=== PATIENT | female | born 1995 | race Caucasian/White ===

== ENCOUNTER → 2016-03-06 | Outpatient (CLI) | payer OTHER ==
[2016-03-06 10:08] LABS: CH 28.5; CHCM 33.2; HCT 39.8 % (34.0-46.0); HDW 2.71; HGB 13.3 gm/dL (11.4-16.0); MCH 28.8 pg (25.0-35.0); MCHC 33.4 g/dL (31.0-37.0); MCV 86.2 fL (80.0-100.0); Mean Platelet Volume 6.3; RBC 4.62 m/uL (3.80-5.40); RDW 12.6 % (11.5-15.5); WBC 7.2 k/uL (4.0-11.0)
[2016-03-06 10:16] LABS: Glucose 120 mg/dL (74-99); Non-African American GFR(MDRD) >60 (>60 ml/min/1.73 sqM)
[2016-03-06 10:38] LABS: Hepatitis B Surface Ag Index 0.06
[2016-03-06 17:16] LABS: Treponemal Ab Non-Reactive (Non-Reactive)
[2016-03-07 06:24] LABS: HIV-1/HIV-2 Ab Screen NONREAC (NON REAC)
== END | disposition home or self-care (01) ==
LOC: LABWHC1 09:13
PROVIDERS: ATTEND Obstetrics & Gynecology
DX: Z34.81 Encounter for supervision of other normal pregnancy, first trimester (principal); Z3A.00 Weeks of gestation of pregnancy not specified
CPT/HCPCS: 36415; 82565; 82947; 85027; 86762; 86777; 86778; 86780; 86850; 86900; 86901; 87340; 87389

== ENCOUNTER → 2016-03-24 | Outpatient (CLI) | payer OTHER ==
--- NOTE | 2016-03-24 10:55 | US ---
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 12 oz. WEIGHT PERCENTAGE BASED ON ESTABLISHED DATE: 92 % HC/AC: 1.2 FL/AC: 22.9 HEART RATE: 136 bpm RHYTHM: Normal ANATOMY SEEN (within normal limits): * Lateral Vent (< 1 cm) 0.6 cm * Cisterna Magna (< 1.1 cm) 0.2 cm * Nuchal Fold (< 0.6 cm) 0.3 cm * Cerebellum (varies with age) 2.0 cm Choroid Plexus (bilateral) Midline Falx Cavus Septi Pellucidi Four Chamber Heart Outflow tracts: LVOT/RVOT Stomach Situs Diaphragm Kidneys (bilateral) Bladder Cord Insert Three Vessel Cord Arms (bilateral) Legs (bilateral) ANATOMY NOT SEEN: Nose / Lips Longitudinal Spine Transverse Spine IMPRESSION: Viable 20w0d fetus that appears wnl, unable to obtain spine images due to position. Brandi ent is scheduled for callback to assess spine.
== END | disposition home or self-care (01) ==
LOC: RADUSWWP 09:35
PROVIDERS: ATTEND Obstetrics & Gynecology
DX: O36.62X0 Maternal care for excessive fetal growth, second trimester, not applicable or unspecified (principal); Z3A.19 19 weeks gestation of pregnancy
CPT/HCPCS: 76811

== ENCOUNTER 2016-08-11 23:43 | Outpatient (CLI) | payer OTHER ==
[2016-08-12 01:32] VITALS: BP 119/56; PULSE 101; RESP 16; TEMP 96.2
--- NOTE | 2016-08-12 07:36 | P.MSEPDOC ---
Presenting Problems - Arrival Data Date of Arrival on Unit: 08/11/16 Time of Arrival on Unit: 23:43 Mode of Transport: Wheelchair - Complaint OB-Reason for Admission/Chief Complaint: Possible Onset of Labor Medical History - Information : 3 Para: 2 Term: 2 : 0 Abortions: Spontaneous or Elective: 0 Number of Living Children: 2 - Gestational Age Expected Date of Delivery: 08/17/16 Gestational Age by RACHEL (wks/days): 39 Weeks and 2 Days - History Complications: Prior Review of Systems - Review of Systems Constitutional: No problems Breast: No problems ENT: No problems Cardiovascular: No problems Respiratory: No problems Gastrointestinal: No problems Genitourinary: No problems Musculoskeletal: No problems Neurological: No problems Skin: No problems Vital Signs - Temperature Temperature: 96.2 F Temperature Source: Temporal Artery Scan - Pulse Right Supine Brachial Pulse Rate: 101 Pulse Assessment Method: Automatic Cuff - Respirations Respiratory Rate: 16 Oxygen Delivery Method: Room Air - Blood Pressure Right Arm Supine Blood Pressure: 119/56 Blood Pressure Mean: 77 Blood Pressure Source: Automatic Cuff Medical Screen Scoring (Pre) - Cervical Exam Dilation: 1-3 cm = 1 Membranes: Intact - Uterine Contractions Frequency: > or = 36 weeks =2, Scheduled / = 6 Duration: N/A Intensity: N/A - Maternal Vital Signs Maternal Temperature: N/A Maternal Blood Pressure: N/A Signs of Preeclampsia: N/A Maternal Respirations: N/A - Maternal Trauma Maternal Trauma: N/A - Assessment Baseline FHR: 125 Heart Rate - NICHD Category: Category I (Normal) = 0 NST: Reactive Position: N/A Station: N/A - Total Score Total Score (Pre): 9 - Level of Risk Level of Risk: Medium (6-9) Physician Notification (Pre) - Physician Notified Physician Notified Date: 08/12/16 Physician Notified Time: 01:05 Physician/Practitioner Notifed:: Sandra Spoke With: Sandra New Order Received: Yes (Discharge to home) - Notification Comment Comment: Has scheduled follow-up appointment already, section on Disposition - Disposition OB Disposition: Discharge to home, Written follow up instructions reviewed Discharge Date: 08/12/16 Discharge Time: 01:15 I agree with the RN Medical Screening Exam: Yes Risk & Benefit of care provided described in d/c instruction: Yes Diagnosis: FALSE LABOR AT OR AFTER 37 COMPLETED WEEKS OF GESTATION
== END 2016-08-12 01:15 | disposition home or self-care (01) ==
LOC: FBPOP 23:43
PROVIDERS: ATTEND Obstetrics & Gynecology
DX: O47.1 False labor at or after 37 completed weeks of gestation (principal); Z3A.39 39 weeks gestation of pregnancy
CPT/HCPCS: 59025; G0463; 99213

== ENCOUNTER 2016-08-13 22:15 | Inpatient (IN) | payer OTHER ==
[2016-08-14 00:37] LABS: Glucose,Whole Blood 95 mg/dL (75-99)
[2016-08-14] MEDS ORDERED: LACTATED RINGERS 1,000 ML IV SCH (01:00)
[2016-08-14 01:28] LABS: Basophils % (A) 0 %; CH 25.3; CHCM 31.8; Eosinophils # (A) 0.1 k/uL (0-0.7); Eosinophils % (A) 1 %; HCT 36.4 % (34.0-46.0); HDW 3.07; HGB 11.7 gm/dL (11.4-16.0); Hypochromasia Slight; Luc # (Auto) 0.28; Luc % (Auto) 2; Lymphocytes # (A) 2.3 k/uL (1.0-4.8); Lymphocytes % (A) 18 %; MCH 25.7 pg (25.0-35.0); MCHC 32.3 g/dL (31.0-37.0); MCV 79.7 fL (80.0-100.0); Mean Platelet Volume 6.6; Monocytes # (A) 0.7 k/uL (0-1.0); Monocytes % (A) 5 %; Neutrophils # (A) 9.6 k/uL (1.3-7.7); Neutrophils % (A) 74 %; RBC 4.56 m/uL (3.80-5.40); RDW 13.8 % (11.5-15.5); WBC (Perox) 13.92
[2016-08-14 02:02] VITALS: BMI 49.1
[2016-08-14] MEDS ORDERED: BUTORPHANOL 1 MG/ML 1 ML VIAL IV PRN (02:12)
[2016-08-14] MEDS ORDERED: ceFAZolin 2 GM in SODIUM CHLORIDE 0.9% 100 ML IVPB STA (03:18)
[2016-08-14] MEDS ORDERED: MORPHINE SULFATE (PF) 0.3 MG/0.3 ML SYR ONE (03:54)
[2016-08-14] MEDS ORDERED: DEXAMETHASONE SOD PHOS (MDV) 100 MG/10 ML VIAL ONE (03:54)
[2016-08-14] MEDS ORDERED: PHENYLEPHRINE-0.9% NACL SYG 1 MG/10 ML SYRINGE ONE (03:54)
[2016-08-14] MEDS ORDERED: ONDANSETRON 4 MG/2 ML VIAL ONE (03:54)
[2016-08-14] MEDS ORDERED: OXYTOCIN 10 UNIT/ML 1 ML VIAL ONE (03:54)
[2016-08-14] MEDS ORDERED: KETOROLAC 30 MG/ML 1 ML VIAL ONE (03:54)
[2016-08-14] MEDS ORDERED: MORPHINE SULFATE 4 MG/ML SYRINGE IVP PRN (04:25)
[2016-08-14] MEDS ORDERED: NALOXONE 0.4 MG/ML 1 ML VIAL IV PRN ×2 (04:25→04:44)
[2016-08-14] MEDS ORDERED: diphenhydrAMINE 50 MG/ML 1 ML VIAL IVP PRN ×2 (04:25→04:44)
[2016-08-14] MEDS ORDERED: ONDANSETRON 4 MG/2 ML VIAL IVP PRN ×2 (04:25→04:44)
[2016-08-14] MEDS ORDERED: ACETAMINOPHEN TAB 325 MG TAB PO PRN (04:44)
[2016-08-14] MEDS ORDERED: KETOROLAC 30 MG/ML 1 ML VIAL IVP PRN (04:44)
[2016-08-14] MEDS ORDERED: METOCLOPRAMIDE 5 MG/ML 2 ML VIAL IVP PRN (04:44)
[2016-08-14] MEDS ORDERED: diphenhydrAMINE 25 MG CAP PO PRN (04:44)
[2016-08-14] MEDS ORDERED: SIMETHICONE 80 MG CHEWABLE PO PRN (04:44)
[2016-08-14] MEDS ORDERED: ZOLPIDEM 5 MG TAB PO PRN (04:44)
[2016-08-14] MEDS ORDERED: Acetaminophen-Codeine 300-30mg TAB PO PRN (04:44)
[2016-08-14] MEDS ORDERED: OXYTOCIN 20 UNITS/1000 ML NS 1,000 ML IV SCH (04:45)
--- NOTE | 2016-08-14 04:55 | P.HPOB ---
History of Present Illness H&P Date: 08/14/16 Chief Complaint: Contractions and previous . This patient is a 20-year-old 3 para 2 female estimated date of confinement 08/16/2016 who presented to labor and delivery with complaints of contractions. Patient scheduled today for a repeat section per Dr. Gambino. Patient began having contractions earlier this evening is found to be 2 cm dilated. care is complicated by noncompliance with testing. It appears Dr. Gambino's has had multiple discussions with her about doing glucose testing, etc. and patient has decided not to do this. Patient's had 2 previous sections and is scheduled for repeat section and thought to be in active labor at this time. Review of Systems Constitutional: Denies chills, Denies fever Eyes: denies blurred vision, denies pain Ears, nose, mouth and throat: Denies headache, Denies sore throat Cardiovascular: Denies chest pain, Denies shortness of breath Respiratory: Denies cough Gastrointestinal: Reports heartburn Genitourinary: Reports Menstruation: Reports amenorrhea Musculoskeletal: Denies myalgias Integumentary: Denies pruritus, Denies rash Neurological: Denies numbness, Denies weakness Psychiatric: Denies anxiety, Denies depression Past Medical History Past Medical History: No Reported History, Thyroid Disorder Additional Past Medical History / Comment(s): Obstetric history: Patient has had 2 previous sections. History of Any Multi-Drug Resistant Organisms: None Reported Past Surgical History: Section Additional Past Surgical History / Comment(s): Tooth surgery Past Anesthesia/Blood Transfusion Reactions: No Reported Reaction Past Psychological History: No Psychological Hx Reported Smoking Status: Current every day smoker Past Alcohol Use History: None Reported Past Drug Use History: None Reported - Past Family History Mother Family Medical History: No Reported History Medications and Allergies Home Medications Medication Instructions Recorded Confirmed Type Pnv,Calcium 72/Iron/Folic Acid 1 tab PO DAILY 08/11/16 08/13/16 History [ Plus Tablet] Allergies Allergy/AdvReac Type Severity Reaction Status Date / Time amoxicillin trihydrate Allergy Rash/Hives Verified 08/13/16 22:25 [From Trimox] Penicillins Allergy Rash/Hives Verified 08/13/16 22:25 Exam - Vital Signs Vital signs: Vital Signs Temp Pulse Resp BP 08/14/16 01:21 98.0 F 95 18 140/65 08/13/16 22:26 98.0 F 95 16 140/65 Intake and Output 08/13/16 08/13/16 08/14/16 14:59 22:59 06:59 Other: Weight 117.934 kg 117.934 kg Patient Weight 08/14/16 06:59 Weight 117.934 kg - OBG Physical Exam Abdomen: bowel sounds normal, no diffuse tenderness, no bruit present, no guarding noted, no hepatomegaly, no splenomegaly, no mass Vulva: both: normal Vagina: normal moisture, no discharge Cervix: no lesion (Cervix is 2 cm dilated and 50% effaced.), no discharge Uterus: enlarged Results Blood type is B+, patient has had a positive group B strep culture. Patient did not do any glucose testing. Result Diagrams: 08/14/16 01:00 Abnormal Lab Results - Last 24 Hours (Table) 08/14/16 Range/Units 01:00 WBC 13.0 H (4.0-11.0) k/uL MCV 79.7 L (80.0-100.0) fL Neutrophils # 9.6 H (1.3-7.7) k/uL Assessment and Plan (1) Previous delivery affecting Narrative/Plan: This is a 20-year-old 3 para 2 female 39-5/7 weeks' gestation with previous section and active labor. Plan is to proceed with repeat section at this time. Patient does understand the surgery and risks including risks of infection, bleeding, possible injury bowel, bladder, vessels , and other organs. All the patient's questions are answered and a written consent is obtained. Status: Acute (2) Active labor at term Status: Acute (3) Group B streptococcal carriage complicating Status: Acute (4) Non-compliant patient Status: Acute
--- NOTE | 2016-08-14 05:01 | P.OP ---
Date of Procedure: 08/14/16 Preoperative Diagnosis: #1: 39-5/7 weeks . #2: Active labor. #3: Previous section 2. #4: Positive group B strep culture. #5: Noncompliance with care. Postoperative Diagnosis: Same, suspect chorioamnionitis, meconium-stained fluid. Procedure(s) Performed: Repeat low transverse section Implants: Anesthesia: spinal Surgeon: James Flores Gateman #1: Cecille Orta Estimated Blood Loss (ml): 800 Pathology: other (Placenta) Condition: stable Disposition: floor Indications for Procedure: Please see dictated H&P for intimate details of this patient's admission. Brief summary this is a 20-year-old 3 para 2 female 39-5/7 weeks gestation who is admitted to labor and delivery in active labor. Patient is a previous section scheduled for repeat today. Patient's has been complicated by noncompliance. Patient understands surgery and its risks including risks of infection, bleeding, possible injury bowel, bladder, vessels , and other organs. Patient her stands risk of DVT and pulmonary embolism. All the patient's questions are answered and a written consent is obtained. Operative Findings: This is a viable male infant Apgars are 7 and 8 delivery time was 0414 hours. Fluid was meconium-stained and had a foul odor to it. The placenta was meconium -stained as well. Description of Procedure: This patient has a Woodruff catheter placed to straight drain. She is subsequently taken to the operating room where she sat up and spinal anesthetic is administered without incident. With an adequate level of anesthesia she has abdominal prep and drape. Scalpels and taken in the previous Pfannenstiel incision is incised. A second scalpel is taken down to the fascia. Fascia scored with a knife. Fascial incision extended bilaterally using the Archibald scissors. Fascia is then dissected off the rectus muscles sharply. Peritoneum was then identified and entered sharply. There are multiple omental adhesions to the lower part of the incision and through the lower uterine segment. The peritoneum was extended and the omental adhesions are dissected. Bladder blade is placed at this time. Bladder peritoneum was taken sharply off the lower uterine segment. Scalpels and taken low transverse uterine incision is then made. Using a hemostat I into the uterine cavity bluntly. There is loss of meconium-stained fluid at this time. Incision is extended bluntly. 's head is then guided through the incision with fundal pressure. There is a nuchal cord and a body cord noted. Mouth and nares are bulb suctioned. There delivery the rest this 's body. The viable male . Apgars are 7 and 8 delivery time 0414 hrs. After delivery of the the umbilical cords doubly clamped and cut is handed off to the nurses in attendance. At this time of fluid is noted to have an odor to it and the placenta is noted to be stained green. The placenta is manually extracted intact. Uterus is then externalized uterine incision then closed in 0 Vicryl running locked fashion 2 layers. Good hemostasis is noted. The bladder peritoneum was unable to be reapproximated due to the omental adhesions. The rectus muscles reapproximated in 0 Vicryl interrupted fashion. Fascia is then closed using 0 PDS. Fascial incision is intact and hemostatic. Subcutaneous tissues and closed using a 3-0 Vicryl. Skin is and closed using mary. All counts are correct 3. There are no complications. is taken to special care for observation secondary to the fluid. Mother is taken to her birthing suite in satisfactory condition.
--- NOTE | 2016-08-14 05:19 | P.MSEPDOC ---
Presenting Problems - Arrival Data Date of Arrival on Unit: 08/13/16 Time of Arrival on Unit: 22:15 Mode of Transport: Bed - Complaint OB-Reason for Admission/Chief Complaint: Possible Onset of Labor Comment: Contractions all day intensified around 1900 this evening about 4 minutes apart Medical History - Information : 3 Para: 2 Term: 2 : 0 Abortions: Spontaneous or Elective: 0 Number of Living Children: 2 - Gestational Age Expected Date of Delivery: 08/16/16 Gestational Age by RACHEL (wks/days): 39 Weeks and 5 Days - History Complications: GBS+ Review of Systems - Review of Systems Constitutional: No problems Breast: No problems ENT: No problems Cardiovascular: No problems Respiratory: No problems Gastrointestinal: No problems Genitourinary: No problems Musculoskeletal: No problems Neurological: No problems Skin: No problems Vital Signs - Temperature Temperature: 96.3 F Temperature Source: Temporal Artery Scan - Pulse Pulse Oximetery Pulse Rate: 109 Pulse Assessment Method: Pulse Oximetry - Respirations Respiratory Rate: 16 Oxygen Delivery Method: Room Air - Blood Pressure Sitting Blood Pressure: 133/56 Blood Pressure Mean: 81 Blood Pressure Source: Automatic Cuff Medical Screen Scoring (Pre) - Cervical Exam Dilation: 1-3 cm = 1 Effacement: More than 50% = 2 Membranes: Intact - Uterine Contractions Frequency: > or = 36 weeks =2 Duration: > 40 seconds = 2 Intensity: N/A - Maternal Vital Signs Maternal Temperature: N/A Maternal Blood Pressure: N/A Signs of Preeclampsia: N/A Maternal Respirations: N/A - Maternal Trauma Maternal Trauma: N/A - Assessment Baseline FHR: 135 Heart Rate - NICHD Category: Category I (Normal) = 0 NST: Reactive Position: N/A - Total Score Total Score (Pre): 7 - Level of Risk Level of Risk: Medium (6-9) Medical Screen Scoring (Post) - Cervical Exam Dilation: 1-3 cm = 1 Effacement: More than 50% = 2 Membranes: Intact - Uterine Contractions Frequency: > or = 36 weeks =2 Duration: > 40 seconds = 2 Intensity: N/A - Maternal Vital Signs Maternal Temperature: N/A Maternal Blood Pressure: N/A Signs of Preeclampsia: N/A Maternal Respirations: N/A - Maternal Trauma Maternal Trauma: N/A - Assessment Heart Rate: 125 Heart Rate - NICHD Category: Category I (Normal) = 0 NST: Reactive Position: N/A Station: N/A - Total Score Total Score (Post): 7 - Post Treatment Level of Risk Post Treatment Level of Risk: High (10+) Physician Notification (Post) - Physician Notified Physician Notified Date: 08/14/16 Physician Notified Time: 00:16 Physician/Practitioner Notified:: Dr. Flores - Notification Comment Comment: Dr. Flores order patient to be admitted for observation at this time as she has not made cervical change, start iv and continuously monitor patient at this time. Patient is scheduled for section at noon. Disposition - Disposition OB Disposition: Admit, LDRP Suite Transferred to:: Suite 5 I agree with the RN Medical Screening Exam: Yes Risk & Benefit of care provided described in d/c instruction: Yes Diagnosis: 39 WEEKS GESTATION OF
[2016-08-14] MEDS: LACTATED RINGERS 1,000 ML IV SCH ×3 (07:00→21:28)
[2016-08-14] MEDS: SENNOSIDES-DOCUSATE SODIUM 1 EACH TAB PO SCH ×2 (09:46→20:15)
[2016-08-14] MEDS ORDERED: LACTATED RINGERS 1,000 ML IV ONE (11:00)
[2016-08-14] MEDS ORDERED: CITRIC ACID-SODIUM CITRATE 15 ML CUP PO ONE (11:00)
[2016-08-14] MEDS: ceFAZolin 2 GM in SODIUM CHLORIDE 0.9% 100 ML IVPB SCH ×2 (12:09→20:16)
[2016-08-15] MEDS: LACTATED RINGERS 1,000 ML IV SCH (04:18)
[2016-08-15 07:04] LABS: Basophils % (A) 0 %; CH 25.6; CHCM 31.7; Eosinophils % (A) 0 %; HCT 32.9 % (34.0-46.0); HGB 10.3 gm/dL (11.4-16.0); Hypochromasia Slight; Luc # (Auto) 0.15; Luc % (Auto) 1; Lymphocytes # (A) 1.9 k/uL (1.0-4.8); Lymphocytes % (A) 16 %; MCH 25.3 pg (25.0-35.0); MCHC 31.2 g/dL (31.0-37.0); Mean Platelet Volume 7.4; Monocytes # (A) 0.8 k/uL (0-1.0); Monocytes % (A) 7 %; Neutrophils # (A) 9.1 k/uL (1.3-7.7); Neutrophils % (A) 76 %; RBC 4.07 m/uL (3.80-5.40); RDW 13.8 % (11.5-15.5); WBC 12.1 k/uL (4.0-11.0); WBC (Perox) 13.39
--- NOTE | 2016-08-15 08:36 | P.PN ---
Progress Note - Text Date:08/15 Time:712 Patient is status post . Patient seen this morning with VAS score of 2.no c/o of pruritus, no c/o nausea/vomiting, comfortable and doing well.
[2016-08-15] MEDS: SENNOSIDES-DOCUSATE SODIUM 1 EACH TAB PO SCH ×2 (10:00→19:53)
[2016-08-15] MEDS: Acetaminophen-Codeine 300-30mg TAB PO PRN ×2 (10:00→15:34)
--- NOTE | 2016-08-15 12:24 | P.PNOBGPC ---
Subjective - Subjective Principal diagnosis: Postop day 1 Interval history: Overall patient doing very well postop day 1. She is able to ambulate, void, and she is tolerating her diet. She voices no complaints. Pain was well- controlled. Abdomen soft vital signs are stable incisions intact. Heart regular, lungs clear, extremities without pain. Assessment postop day 1. Plan continue care. Patient reports: Reports appetite normal, Reports voiding normally, Reports pain well controlled, Reports ambulating normally [place]: doing well, in NICU Objective - Vital Signs Latest vital signs: Vital Signs Temp Pulse Resp BP Pulse Ox 08/15/16 07:47 97.8 F 94 16 128/80 08/15/16 04:00 98.6 F 95 18 118/68 98 08/15/16 00:00 98.4 F 90 18 126/66 100 08/14/16 20:00 97.7 F 82 18 122/57 100 08/14/16 15:46 97.9 F 106 H 16 122/70 Intake and Output 08/14/16 08/15/16 08/15/16 22:59 06:59 14:59 Intake Total 1300 Output Total 1200 Balance 100 Intake: IV 1300 Lactated Ringers 1,000 ml 1300 @ 125 mls/hr IV .Q8H SAUL Rx#:[id number] Output: Urine 1200 Other: # Voids 1 - Labs Labs: Abnormal Lab Results - Last 24 Hours (Table) 08/15/16 Range/Units 06:50 WBC 12.1 H (4.0-11.0) k/uL Hgb 10.3 L (11.4-16.0) gm/dL Hct 32.9 L (34.0-46.0) % Neutrophils # 9.1 H (1.3-7.7) k/uL
[2016-08-16] MEDS: LACTATED RINGERS 1,000 ML IV SCH (04:24)
--- NOTE | 2016-08-16 08:12 | P.PNOBGPC ---
Subjective - Subjective Principal diagnosis: Postoperative Interval history: Overall Yudith is doing very well. She is ambulating, voiding and she is tolerating her diet. She voices no complaints this morning. Vital signs are stable and afebrile. Heart regular, lungs clear, extremities without pain. Abdomen is soft uterus is firm and her lochia is reported be light. Incisions clean dry and intact. Assessment postop day 2. Plan continue current care. Baby is currently in special care nursery and she will therefore stay likely until babies discharge or until postop day 4. Patient reports: Reports appetite normal, Reports voiding normally, Reports pain well controlled, Reports ambulating normally : in NICU Objective - Vital Signs Latest vital signs: Vital Signs Temp Pulse Resp BP Pulse Ox 08/16/16 00:00 98.5 F 114 H 16 115/66 99 08/15/16 15:41 97.7 F 108 H 16 137/69
[2016-08-16] MEDS: IBUPROFEN 600 MG TAB PO PRN ×2 (14:09→23:58)
[2016-08-16] MEDS: SENNOSIDES-DOCUSATE SODIUM 1 EACH TAB PO SCH ×2 (18:59→19:39)
--- NOTE | 2016-08-17 11:26 | P.PNOBGPC ---
Subjective - Subjective Principal diagnosis: Postoperative 3 Interval history: Yudith is doing very well postop day 3. She is involuting, voiding, and she is tolerating her diet. She is passing flatus. Vital signs are stable and afebrile. Heart regular, lungs clear, extremities without pain. Abdomen is soft uterus is firm and her incision is clean dry and intact. Assessment postop day 3. Plan discharged home tomorrow as baby is still in special care nursery but should be discharged home tomorrow. Follow-up with me in 1 week. Perceptions for pain medication provided. Patient reports: Reports appetite normal, Reports voiding normally, Reports pain well controlled, Reports ambulating normally [place]: doing well Objective - Vital Signs Latest vital signs: Vital Signs Temp Pulse Resp BP Pulse Ox 08/17/16 08:00 98.1 F 84 20 116/67 99 08/17/16 00:00 98.2 F 86 18 115/85 98 08/16/16 16:00 98.4 F 84 20 112/64 99
[2016-08-17] MEDS: IBUPROFEN 600 MG TAB PO PRN (13:30)
[2016-08-17] MEDS: SENNOSIDES-DOCUSATE SODIUM 1 EACH TAB PO SCH (13:30)
[2016-08-18] MEDS: SENNOSIDES-DOCUSATE SODIUM 1 EACH TAB PO SCH (00:51)
--- NOTE | 2016-08-18 06:50 | P.DS ---
Providers Date of admission: 08/14/16 00:18 Expected date of discharge: 08/18/16 Attending physician: Miquel Gambino Primary care physician: Stated None Hospital Course: Yudith is doing very well postop day 4. She is involuting, voiding, and she is tolerating her diet voices no complaints. Her incision is clean dry and intact on her abdomen. Other physical exam reveals her uterus to be firm. Her extremities are without pain. Her heart is otherwise regular and lungs are clear. Prescription for pain medications provided provided and she'll follow up with me in 1 week. All questions are answered for her pressure discharge and discharge instructions were thoroughly reviewed. Assessment postop day 4. Plan remove mary and discharged home today. Patient Condition at Discharge: Good Plan - Discharge Summary New Discharge Prescriptions: New Acetaminophen-Codeine 300-30mg [Tylenol #3] 1 tab PO Q4H PRN #30 tablet PRN Reason: Pain Ibuprofen [Motrin] 600 mg PO Q6HR PRN #30 tab PRN Reason: Pain No Action Pnv,Calcium 72/Iron/Folic Acid [ Plus Tablet] 1 tab PO DAILY Discharge Medication List Pnv,Calcium 72/Iron/Folic Acid [ Plus Tablet] 1 tab PO DAILY 08/11/16 [ History] Acetaminophen-Codeine 300-30mg [Tylenol #3] 1 tab PO Q4H PRN #30 tablet [Rx] Ibuprofen [Motrin] 600 mg PO Q6HR PRN #30 tab 08/17/16 [Rx] Follow up Appointment(s)/Referral(s): Miquel Gambino DO [Doctor of Osteopathic Medicine] - 1 Week Activity/Diet/Wound Care/Special Instructions: no heavy lifting, limit stairs and driving and pelvic rest. If any high temperatures, heavy bleeding, or severe pain call my office Discharge Disposition: HOME SELF-CARE
[2016-08-18 09:31] VITALS: RESP 17
[2016-08-18 16:37] VITALS: BP 128/75; PULSE 78; TEMP 98.1
== END 2016-08-18 16:30 | disposition home or self-care (01) | DRG 766 ==
LOC: FBPOP 22:15 → 4FBP 08-14 00:18
PROVIDERS: ADMIT Obstetrics & Gynecology; ATTEND Obstetrics & Gynecology
PROC: 10D00Z1 Extraction of Products of Conception, Low, Open Approach (ICD-10-PCS; principal; 2016-08-14 04:08)
DX: O34.211 Maternal care for low transverse scar from previous cesarean delivery (principal); F17.200 Nicotine dependence, unspecified, uncomplicated; Z37.0 Single live birth; O77.0 Labor and delivery complicated by meconium in amniotic fluid; O99.334 Smoking (tobacco) complicating childbirth; Z3A.39 39 weeks gestation of pregnancy; Z91.19 Patient's noncompliance with other medical treatment and regimen; Z88.1 Allergy status to other antibiotic agents; Z88.0 Allergy status to penicillin; O69.81X0 Labor and delivery complicated by cord around neck, without compression, not applicable or unspecified; O99.824 Streptococcus B carrier state complicating childbirth
CPT/HCPCS: 59025; 85025; 86850; 86900; 86901; 88307; 99213

== ENCOUNTER 2024-06-08 06:23 | Emergency (ER) | payer OTHER ==
--- NOTE | 2024-06-08 06:56 | ED ---
Female Urogenital HPI - General Chief complaint: Urogenital Stated complaint: Urogenital Time Seen by Provider: 06/08/24 06:33 Source: patient, RN notes reviewed Mode of arrival: ambulatory Limitations: no limitations - History of Present Illness Initial comments: 28-year-old female presents emergency department with chief complaint of urinary frequency and urgency. Patient denies any fevers or chills denies any back pain no flank pain patient is concerned she has urinary tract infection. Patient has no other complaints denies any chance . Denies vaginal symptoms - Related Data Home Medications Medication Instructions Recorded Confirmed Pnv,Calcium 72/Iron/Folic Acid 1 tab PO DAILY 08/11/16 08/13/16 [ Plus Tablet] Previous Rx's Medication Instructions Recorded Acetaminophen-Codeine 300-30mg 1 tab PO Q4H PRN #30 tablet 08/17/16 [Tylenol #3] Ibuprofen [Motrin] 600 mg PO Q6HR PRN #30 tab 08/17/16 Cephalexin [Keflex] 500 mg PO Q8HR #21 cap 06/08/24 Phenazopyridine [Pyridium] 200 mg PO TID #6 tablet 06/08/24 Allergies Allergy/AdvReac Type Severity Reaction Status Date / Time amoxicillin trihydrate Allergy Rash/Hives Verified 06/08/24 06:28 [From Trimox] Penicillins Allergy Rash/Hives Verified 06/08/24 06:28 Review of Systems ROS Statement: Those systems with pertinent positive or pertinent negative responses have been documented in the HPI. ROS Other: All systems not noted in ROS Statement are negative. Past Medical History Past Medical History: No Reported History, Thyroid Disorder Additional Past Medical History / Comment(s): Obstetric history: Patient has had 2 previous sections. History of Any Multi-Drug Resistant Organisms: None Reported Past Surgical History: Section Additional Past Surgical History / Comment(s): Tooth surgery Past Anesthesia/Blood Transfusion Reactions: No Reported Reaction Past Psychological History: No Psychological Hx Reported Smoking Status: Current every day smoker Past Alcohol Use History: None Reported Past Drug Use History: None Reported - Past Family History Mother Family Medical History: No Reported History General Exam Limitations: no limitations General appearance: alert, in no apparent distress Head exam: Present: atraumatic, normocephalic, normal inspection Eye exam: Present: normal appearance, PERRL, EOMI. Absent: scleral icterus, conjunctival injection, periorbital swelling Neck exam: Present: normal inspection. Absent: tenderness, meningismus, lymphadenopathy Respiratory exam: Present: normal lung sounds bilaterally. Absent: respiratory distress, wheezes, rales, rhonchi, stridor Cardiovascular Exam: Present: regular rate, normal rhythm, normal heart sounds. Absent: systolic murmur, diastolic murmur, rubs, gallop, clicks GI/Abdominal exam: Present: soft, normal bowel sounds. Absent: distended, tenderness, guarding, rebound, rigid Back exam: Absent: CVA tenderness (R), CVA tenderness (L) Course Vital Signs 06/08/24 06:24 Temperature 98 F Pulse Rate 107 H Respiratory 18 Rate Blood Pressure 116/65 O2 Sat by Pulse 100 Oximetry Medical Decision Making - Medical Decision Making Was pt. sent in by a medical professional or institution (, PA, TUTORIAL LABORATORY SUPERVISOR, urgent care, hospital, or fdc...) When possible be specific @ -No Did you speak to anyone other than the patient for history (EMS, parent, family, police, friend...)? What history was obtained from this source @ -No Did you review nursing and triage notes (agree or disagree)? Why? @ -I reviewed and agree with nursing and triage notes Were old charts reviewed (outside hosp., previous admission, EMS record, old EKG, old radiological studies, urgent care reports/EKG's, fdc records)? Report findings @ -No old charts were reviewed Differential Diagnosis (chest pain, altered mental status, abdominal pain women, abdominal pain men, vaginal bleeding, weakness, fever, dyspnea, syncope, headache, dizziness, GI bleed, back pain, seizure, CVA, palpatations, mental health, musculoskeletal)? @ -UTI, urinary frequency, dysuria, hematuria EKG interpreted by me (3pts min.). @ -None X-rays interpreted by me (1pt min.). @ -None done CT interpreted by me (1pt min.). @ -None done U/S interpreted by me (1pt. min.). @ -None done What testing was considered but not performed or refused? (CT, X-rays, U/S, labs)? Why? @ -None What meds were considered but not given or refused? Why? @ -None Did you discuss the management of the patient with other professionals (professionals i.e. , PA, TUTORIAL LABORATORY SUPERVISOR, lab, RT, psych nurse, social scientist, hydraulic barker operator, teacher, freedom of information officer, telephonic nurse case manager)? Give summary @ -No Was smoking cessation discussed for >3mins.? @ -No Was critical care preformed (if so, how long)? @ -No Were there social determinants of health that impacted care today? How? (Homelessness, low income, unemployed, alcoholism, drug addiction, transportation, low edu. Level, literacy, decrease access to med. care, [facility], rehab)? @ -No Was there de-escalation of care discussed even if they declined (Discuss DNR or withdrawal of care, Hospice)? DNR status @ -No What co-morbidities impacted this encounter? (DM, HTN, Smoking, COPD, CAD, Cancer, CVA, ARF, Chemo, Hep., AIDS, mental health diagnosis, sleep apnea, morbid obesity)? @ -None Was patient admitted / discharged? Hospital course, mention meds given and route, prescriptions, significant lab abnormalities, going to OR and other pertinent info. @ -Discharge patient has evidence of urinary tract infection. Patient started on oral antibiotics, Pyridium. Return parameters deysi. Undiagnosed new problem with uncertain prognosis? @ -No Drug Therapy requiring intensive monitoring for toxicity (Heparin, Nitro, Insulin, Cardizem)? @ -No Were any procedures done? @ -No Diagnosis/symptom? @ -UTI Acute, or Chronic, or Acute on Chronic? @ -Acute Uncomplicated (without systemic symptoms) or Complicated (systemic symptoms)? @ -Uncomplicated Side effects of treatment? @ -No Exacerbation, Progression, or Severe Exacerbation? @ -No Poses a threat to life or bodily function? How? (Chest pain, [place], [place], pneumonia, PE, COPD, DKA, ARF, appy, cholecystitis, CVA, Diverticulitis, Homicidal, Suicidal, threat to staff... and all critical care pts) @ -No - Lab Data Lab Results 06/08/24 06/08/24 Range/Units 06:35 06:35 Urine Color Yellow Urine Appearance Cloudy H (Clear) Urine pH 6.0 (5.0-8.0) Ur Specific [place] 1.027 (1.001-1.035) Urine Protein Trace H (Negative) Urine Glucose (UA) Negative (Negative) Urine Ketones Negative (Negative) Urine Blood Small H (Negative) Urine Nitrite Negative (Negative) Urine Bilirubin Negative (Negative) Urine Urobilinogen <2.0 (<2.0) mg/dL Ur Leukocyte Esterase Moderate H (Negative) Urine RBC 19 H (0-5) /hpf Urine WBC 110 H (0-5) /hpf Ur Squamous Epith Cells 16 H (0-4) /hpf Urine Bacteria Rare H (None) /hpf Urine Mucus Occasional H (None) /hpf Urine HCG, Qual Not Detected (Not Detectd) Disposition Clinical Impression: UTI (urinary tract infection) Disposition: HOME SELF-CARE Condition: Stable Instructions (If sedation given, give patient instructions): Urinary Tract Infection in Women (ED) Additional Instructions: Please return to the Emergency Department if symptoms worsen or any other concerns. Prescriptions: Cephalexin [Keflex] 500 mg PO Q8HR #21 cap Phenazopyridine [Pyridium] 200 mg PO TID #6 tablet Is patient prescribed a controlled substance at d/c from ED?: No Referrals: None,Stated [Primary Care Provider] - 1-2 days Time of Disposition: 07:24
[2024-06-08 07:05] LABS: Appearance,Urine Cloudy (Clear); Bacteria,Urine Rare /hpf; Bilirubin,Urine Negative (Negative); Blood,Urine Small (Negative); Color,Urine Yellow; Glucose,Urine (UA) Negative (Negative); Ketones,Urine Negative (Negative); Leukocyte Esterase,Urine Moderate (Negative); Mucus,Urine Occasional /hpf; Nitrite,Urine Negative (Negative); Protein,Urine Trace (Negative); RBC,Urine 19 /hpf (0-5); Specific Gravity,Urine 1.027 (1.001-1.035); Squamous Epithelial Cell,Urine 16 /hpf (0-4); Urobilinogen,Urine <2.0 mg/dL (<2.0); WBC,Urine 110 /hpf (0-5)
[2024-06-08] MEDS: CEPHALEXIN 500 MG CAP PO STA (07:50)
[2024-06-08 08:27] VITALS: BP 102/71; PULSE 79; RESP 20; TEMP 98.1
== END 2024-06-08 08:28 | disposition home or self-care (01) ==
LOC: EC 06:23
DX: N39.0 Urinary tract infection, site not specified (principal); F17.200 Nicotine dependence, unspecified, uncomplicated; Z88.0 Allergy status to penicillin
CPT/HCPCS: 81001; 81025; 87086; 99283